=== PATIENT | male | born 1955 | race Caucasian/White ===

== ENCOUNTER 2022-03-21 05:24 | Day surgery (SDC) | payer OTHER ==
[~2022-03-21] VITALS: Ht 177.8 cm; Wt 85.1 kg
[2022-03-21] VITALS (12 sets, daily range): BP systolic 112–139; BP diastolic 60–93; PULSE 72–97; TEMP 97.8–99.1
--- NOTE | 2022-03-21 05:42 | NUR ---
PT AMBULATED TO UNIT WITHOUT DIFFICULTY WITH SPOUSE AND SON ACCOMPANIED. PT A&OX4. PROCEDURE VERIFIED, CONSENTS SIGNED. CALL ANDREW WITHIN REACH; SAFETY MAINTAINED.
[2022-03-21] MEDS ORDERED: BREO IH (06:10)
[2022-03-21] MEDS ORDERED: THEO-DUR 3300 MG/TAB PO (06:11)
[2022-03-21] MEDS ORDERED: ADVIL LIQUI-GE200 MG PO (06:11)
[2022-03-21] MEDS ORDERED: ZESTRIL 20MG TA20 MG PO (06:11)
[2022-03-21] MEDS ORDERED: TYLENOL 325MG325 MG PO (06:13)
[2022-03-21] MEDS ORDERED: VITAMIN C PO (06:14)
--- NOTE | 2022-03-21 11:45 | NUR ---
Patient arrived to room 349 via bed from PACU. Post op vitals initiated and WNL. Rating pain 5/10 to right shoulder-chronic shoulder joint pain. states he usually wears a lidocaine patch-will contact Dr Nugent to see if we can get it ordered.
[2022-03-21] MEDS ORDERED: SALONPAS1 EACH TP (12:29)
--- NOTE | 2022-03-21 18:32 | NUR ---
Patient has had an uneventful day since arriving from PACU. Received tylenol/toradol as scheduled. VS remain stable. 6 lap sites edges well approximated-CDI. LR@125ml/hr to left forearm 18g. Plan of care discussed for getting up out of bed this evening. Was still groggy/loopy during attempt earlier today. Jewell cath with reddish output. Tolerated clear liquids. Denies current needs. Call light in reach. Will monitor.
--- NOTE | 2022-03-22 01:45 | NUR ---
SHIFT REPORT FROM ROGERIO LAGOS. PATIENT IN BED ON ROOM ENTRY. FAMILY AT BEDSIDE. HS MEDS PER EMAR. C/O MINIMAL TO NO PAIN THAT IS MANAGED WITH SCHEDULED TYLENOL AND TORADOL. GOOD URINE OUTPUT IN DÍAZ, DRAINAGE IS PINK TINGED AND CLEAR. X6 LAPS CDI. AMBULATED IN HALLS WITH SBA.
[2022-03-22 03:42] VITALS: BP 113/58; PULSE 72; TEMP 98.4
[2022-03-22 06:42] LABS: HEMATOCRIT 38.5 % (42.0-52.0); HEMOGLOBIN 12.9 g/dl (13.5-18.0)
[2022-03-22 07:02] LABS: CALCIUM 8.4 mg/dL (8.4-10.2); CREATININE, serum 0.77 mg/dL (0.72-1.25); POTASSIUM 4.1 mmol/L (3.5-4.5)
[2022-03-22 07:59] VITALS: BP 110/63; PULSE 65; TEMP 98.3
--- NOTE | 2022-03-22 08:28 | NUR ---
Assessment complete. A&Ox4. Denies pain/nausea/shortness of breath. VS remain stable. Lap sites x6-edges well approximated-no drainage noted. +flatus. Jewell cath with pink to yellow clear urine. Adequate output. IV fluids continue to infuse to Left FA IV without difficulty. Has been up to ambulate x1 but states he was still a little unsteady. Plan to ambulate again after breakfast with staff. Refused Lidocaine patch stating no shoulder pain today. SCDs on. Denies any questions/concerns. Call light in reach. Will monitor.
--- NOTE | 2022-03-22 10:38 | NUR ---
SW met with patient to complete intake. Patient provides that his lives in [facility] with spouse Sarahi [phone]. Patient does not utilize DME, independent with ADL's and does not utilize HH services at this time. PCP is out of [facility], and pharmacy is [facility] out of [place]. Spouse is appointed as DPOA/HC. Patient plans to return to his home in [place] upon DC. SW will continue to follow DC plan: home
[2022-03-22 12:02] VITALS: BP 109/66; PULSE 67; TEMP 98.5
--- NOTE | 2022-03-22 12:58 | NUR ---
Network Director offered prayer and support with patient while family was in room.
--- NOTE | 2022-03-22 13:00 | NUR ---
Teaching completed on [facility] home care. Provided with leg bag and supplies for [facility]. Discharge instructions given both verbal and handwritten. Discussed f/u appt, s/s of infection, home incision care and medications. Provided with discharge packet. INT to left AC DCd at this time-cath intact. Escorted off lujan via wheelchair with family and PCT.
== END 2022-03-22 13:00 | disposition home or self-care (01) ==
LOC: SDCO 05:24 → SURG 11:40 → SDCO 03-22 13:00
PROVIDERS: Urology
DX: C61 Malignant neoplasm of prostate (principal); I10 Essential (primary) hypertension; J45.909 Unspecified asthma, uncomplicated; Z87.891 Personal history of nicotine dependence; Z79.899 Other long term (current) drug therapy
CPT/HCPCS: OP; A4314; A9284; J0690; J1100; J1170; J1885; J2250; J2405; J2704; J3010; J7120